=== PATIENT | male | born 1970 | race American Indian/Alaskan Native ===

== ENCOUNTER 2019-09-16 10:44 | Day surgery (SDC) | payer OTHER ==
--- NOTE | 2019-09-16 08:06 | Short Stay Summary ---
Short Stay Documentation Date of service: 09/16/19 - History H&P: obtained from office - Allergies and Medications Current Medications: Allergies No Known Allergies Allergy (Unverified 09/06/19 12:51) Home Medications Medication Instructions Recorded Confirmed Last Taken Type Lisinopril 10 mg PO DAILY 09/06/19 09/06/19 Unknown History Active Medications Celecoxib (Celebrex) 200 mg PO PREOP NR Sodium Chloride (Nacl 0.9% 1000 Ml) 1,000 mls @ 75 mls/hr IV DIRECT LUIZA Cefazolin Sodium (Ancef/Sterile Water 2 Gm/20 Ml) 2 gm in 20 mls @ 80 mls/hr IV PREOP NR; Protocol Stop: 09/16/19 10:00 - Physical exam General appearance: no acute distress Integumentary: no rash HEENT: Atraumatic Neurological: Normal speech - Brief post op/procedure progress note Date of procedure: 09/16/19 (dictation: [id number]) Pre-op diagnosis: forehead soft tissue mass Post-op diagnosis: same Procedure: Excision of forehead soft tissue mass IVF 550cc EBl min Anesthesia: MAC Findings: [id number] lipomatous mass Surgeon: LUIS OSPINA Estimated blood loss: minimal Pathology: list (lipomatous mass) Specimen disposition: to lab Condition: stable - Hospital course Hospital course: uneventful - Disposition Condition at discharge: Stable Disposition: [id number]-01 TO HOME OR SELFCARE Short Stay Discharge Plan Activity: no restrictions, advance as tolerated Diet: regular Wound: open to air, keep clean and dry Additional Instructions: Post Operative Instructions Activity: as tolerated May shower tomorrow. Pat dry the wound or wounds. Keep incision sites clean and dry After surgery, start with a light diet. Consider starting with liquids. If you do well, you can advance to a regular diet as you feel comfortable. Apply an ice pack to the wound or wounds for 10-20 minutes at a time. Do this at least 4-5 times a day. You can do it more if he would like. Pain Medication Schedule for the first 2 days after surgery: Gabapentin 600mg twice a day Celebrex (celecoxib) 200mg twice a day Tylenol 500mg four times a day (every 6 hours) After the first 2 days, then take alternating doses of ibuprofen and Tylenol as needed for pain. Take 600 mg of ibuprofen every 6 hours as needed. Take 500 mg of Tylenol every 6 hours as needed. You should alternate these 2 medicines. Make sure you take the ibuprofen with food. It is very important that you use the prescription narcotic pain medicine (hydrocodone) only for very severe pain. Do not take the narcotic medicine before you try using all the medications listed above. We will call you in a couple of days to see how youre doing. If you have any questions or concerns, always feel free to call the clinic ([phone]) at any time. Follow up with: [facility] [Primary Care Provider] - 7 Days LUIS OSPINA MD [Staff Physician] - 14 Days Forms: Outpatient Surgery DC Inst. Prescriptions: Acetaminophen [Acetaminophen TAB] 500 mg PO Q6HR PRN #30 tablet PRN Reason: Pain, Moderate (4-6) Celecoxib [celeBREX] 200 mg PO BID #4 capsule Gabapentin 600 mg PO BID #4 capsule HYDROcodone/APAP 5-325 [Alger 5-325 mg TAB] 1 each PO Q6HR PRN #15 tablet PRN Reason: Pain , Severe (7-10)
[~2019-09-16 10:44] MED LIST: ACETAMINOPHEN 500 MG TAB PO ONE; CELECOXIB 200 MG CAP PO NR; GABAPENTIN 300 MG CAP PO ONE; SODIUM CHLORIDE 0.9% 1000 ML 1,000 ML IV SCH; ceFAZolin/Water 2 GM/20 ML 2 GM/20 ML SYRINGE IV NR
[2019-09-16] MEDS ORDERED: MIDAZOLAM 2 MG/2 ML INJ IV NR (11:00)
[2019-09-16] MEDS ORDERED: LACTATED RINGERS 1,000 ML IV SCH (11:00)
[2019-09-16] MEDS ORDERED: fentaNYL 100 MCG/2 ML INJ IV PRN (11:20)
--- NOTE | 2019-09-16 11:20 | Anesthesia Consultation ---
Anesthesia Consult and Med Hx Date of service: 09/16/19 - Airway Anesthetic Teeth Evaluation: Good ROM Head & Neck: Adequate Mental/Hyoid Distance: Adequate Mallampati Class: Class III Intubation Access Assessment: Possibly Difficult - Pulmonary Exam CTA: Yes - Cardiac Exam Cardiac Exam: RRR - Pre-Operative Health Status ASA Pre-Surgery Classification: ASA3 Proposed Anesthetic Plan: General - Pulmonary Hx Smoking: No Hx Respiratory Symptoms: No Hx Sleep Apnea: Yes (compliant with CPAP) - Cardiovascular System Hx Hypertension: Yes Hx Heart Attack/AMI: No Hx Percutaneous Transluminal Coronary Angioplasty (PTCA): No - Central Nervous System CVA: No Hx Back Pain: Yes (W/ LT LOWER LEG NUMBNESS) - Gastrointestinal Hx Gastroesophageal Reflux Disease: No - Endocrine Hx Renal Disease: No Hx Liver Disease: No Hx Insulin Dependent Diabetes: No Hx Non-Insulin Dependent Diabetes: No Hx Thyroid Disease: No - Other Systems Hx Obesity: Yes (BMI 42) - Additional Comments Anesthesia Medical History Comments: No hx anesthetic complications.
--- NOTE | 2019-09-16 11:20 | Anesthesia Day of Surgery ---
Anesthesia Day of Surgery - Day of Surgery Patient Examined: Yes Patient H&P Reviewed: Yes Patient is NPO: Yes
[2019-09-16] MEDS ORDERED: ACETAMINOPHEN 500 MG TAB PO NR (11:30)
[2019-09-16] MEDS ORDERED: GABAPENTIN 300 MG CAP PO NR (11:30)
[2019-09-16] MEDS ORDERED: SODIUM CHLORIDE 0.9% 1000 ML 1,000 ML IV SCH (11:30)
[2019-09-16] MEDS ORDERED: ceFAZolin/Water 2 GM/20 ML 2 GM/20 ML SYRINGE IV NR (12:00)
[2019-09-16] MEDS ORDERED: HYDROmorphone 1 MG/1 ML INJ ONE (13:03)
[2019-09-16] MEDS ORDERED: MIDAZOLAM 2 MG/2 ML INJ ONE (13:04)
[2019-09-16] MEDS ORDERED: LIDOCAINE MPF (2%) 20 MG/1 ML VIAL 5 ML ONE (13:04)
[2019-09-16] MEDS ORDERED: propofoL 200 MG/20 ML VIAL IV ONE (13:04)
[2019-09-16] MEDS ORDERED: BUPIVACAINE/PF (0.5%) 5 MG/1 ML 10 ML VIAL INFILTRATI ONE (13:26)
[2019-09-16] MEDS ORDERED: BUPIVACAINE-EPINEPHRINE/PF 0.5%-1:200,000 (30 ML) VIAL INFILTRATI ONE ×2 (13:51→14:17)
[2019-09-16] MEDS ORDERED: LIDOCAINE (1%) 10 MG/1 ML VIAL 20 ML MDV INFILTRATI ONE (14:17)
[2019-09-16] MEDS ORDERED: WATER FOR IRRIG STERILE 1,000 ML BOTTLE IR ONE (14:17)
--- NOTE | 2019-09-16 15:37 | Post Anesthesia Evaluation ---
- Post Anesthesia Evaluation Patient Participated: Yes Airway Patent: Yes Stable Respiratory Function: Yes Nausea/Vomiting: No Temp > 96.8F: Yes Pain Manageable: Yes Adequeate Hydration: Yes Anesthesia Complications: No
--- NOTE | 2019-09-16 18:02 | Operative Report ---
PREOPERATIVE DIAGNOSIS: Forehead soft tissue mass. POSTOPERATIVE DIAGNOSIS: Forehead soft tissue mass. PROCEDURE: Excision of forehead soft tissue mass. ATTENDING PHYSICIAN: Isabella Collier MD ANESTHESIA: Local MAC. ESTIMATED BLOOD LOSS: Minimal. FLUIDS: 550 mL. FINDINGS: 1 x 3 x 4 cm lipomatous mass in the subcutaneous layer of the forehead. DRAINS: None. COMPLICATIONS: None. DISPOSITION: Stable, transferred to Recovery Room. INDICATIONS: This is a 49-year-old male with an enlarging mass on the forehead that causes him discomfort, especially when wearing anything on the head. The patient wished to have the mass excised. He appeared to be appropriate candidate. Procedure, risks, benefits were explained to the patient. Risks include but were not limited to infection, bleeding, pain, injury to surrounding structures, possible need for further procedures in the future. The patient understood and consented. OPERATIVE NOTE: The patient was brought to the operating room and placed on the table in supine position. After adequate sedation was established, the patient was prepped and draped in usual sterile fashion. All pressure points were padded. SCDs were in place. Antibiotics have been given. Time-out was called. I began by anesthetizing the planned incision site. We tried to stay with one of the skin lines to help with the healing. Incision was made sharply down to the mass. We went through the skin tissue as well as loose connective tissue, I was able to get down to the lipomatous mass. It was densely adhered to the underlying epicranius muscle and periosteum. We did a combination of blunt dissection as well as electrocautery in order to separate from the surrounding tissue. I was able to remove it intact. Pressure was held for hemostasis. Additional local was injected into the surrounding tissue. A 3-0 Vicryl was used to close the muscular/fascial layer and then 4-0 Monocryl subcuticular stitch was placed to close the skin. Skin was cleaned and dried. Dermabond was placed. I decided because of the size of the cavity and the great blood supply of skin that we put a pressure dressing to minimize seroma accumulation as well as hematoma formation. Therefore at the end, a pressure dressing was applied. The patient tolerated the procedure well. There were no complications. All counts were correct at the end of the case. JOB# [id number] ELEAZAR MELGOZA
[2019-09-16 20:35] VITALS: BP 134/76
== END 2019-09-16 10:45 | disposition home or self-care (01) ==
LOC: OR 10:44
PROVIDERS: ATTEND Surgery
DX: R22.0 Localized swelling, mass and lump, head (principal); D17.0 Benign lipomatous neoplasm of skin and subcutaneous tissue of head, face and neck; I10 Essential (primary) hypertension; G47.30 Sleep apnea, unspecified; M19.90 Unspecified osteoarthritis, unspecified site; E66.9 Obesity, unspecified; Z68.41 Body mass index [BMI] 40.0-44.9, adult; Z98.890 Other specified postprocedural states; Z79.899 Other long term (current) drug therapy
CPT/HCPCS: 21012; 88304; J0690; J1170; J2250; J2704; J7120; 88307